=== PATIENT | male | born 1975 | race African-American/Black ===

== ENCOUNTER 2019-04-14 15:41 | Inpatient (IN) | payer OTHER ==
[2019-04-14 17:23] VITALS: BMI 31.2
--- NOTE | 2019-04-14 19:21 | HP ---
CIWA Score Nausea/Vomitin-No Nausea/No Vomiting Muscle Tremors: None Anxiety: 3 Agitation: 4-Moderately Restless Paroxysmal Sweats: 2 Orientation: 0-Oriented Tacttile Disturbances: 2-Mild Itch/Numbness/Burn Auditory Disturbances: 2-Mild Harshness/Frighten Visual Disturbances: 2-Mild Sensitivity Headache: 3-Moderate CIWA-Ar Total Score: 18 - Admission Criteria OASAS Guidelines: Admission for Medically Managed Detox: Requires at least one of the followin. CIWA greater than 12 2. Seizures within the past 24 hours 3. Delirium tremens within the past 24 hours 4. Hallucinations within the past 24 hours 5. Acute intervention needed for co occurring medical disorder 6. Acute intervention needed for co occurring psychiatric disorder 7. Severe withdrawal that cannot be handled at a lower level of care (continued vomiting, continued diarrhea, abnormal vital signs) requiring intravenous medication and/or fluids 8. Admission ROS [facility] Allergies/Adverse Reactions: Allergies Allergy/AdvReac Type Severity Reaction Status Date / Time ibuprofen [From Motrin] Allergy Severe Rash Verified 04/14/19 17:11 amoxicillin Allergy Intermediate Verified 04/14/19 17:11 History of Present Illness: pt here requesting assistance with alcohol, cocaine and cannabis use , reports was referred by executive secretary social welfare at [facility] ER where he went because he was hearing voices telling him he is worthless , currently states has not heard voices in hours, rpeorts auditory hallucinations since teens , dx w / sad not on meds since January 2019 @ [facility]'s claimswas given Seroquel bid . etoh use : 6-pk and 1/2 pint liquor , starts drinking upon awakening , reports irritability if not drinking , tremors , first age of use 19 , heavily isnce 20's , prior detox x " over a dozen " most recently Jun 2018 elev8 , relapsed after d/c . latest use 7 am today , current symptoms as above . cocaine : 100 $ /day denies IVDU cannabis : 20 $/day denies other illicits including opiates . tobacco : 1 ppd pmhx : cough dx w/ COPD , reports was given ALbuterol and meds @ [facility] , completed meds . pshx : jaw frx 1994 , umbil hernia 2009 psych : suicide attempt x 4 , most recently 5 years ago w / cutting wrists , denies current SI / HI SHX : homeless , unemployed on parole x 5 years 2 children ages 18 & 12 , has not met 12 yr old Exam Limitations: Clinical Condition - Ebola screening Have you traveled outside of the country in the last 21 days: No Have you had contact with anyone from an Ebola affected area: No - Review of Systems Constitutional: Loss of Appetite EENT: reports: Other (glasses for reading) Respiratory: reports: Shortness of Breath, Productive cough (improved from prior symptoms states meds helped) Cardiac: reports: No Symptoms Reported GI: reports: Diarrhea : reports: No Symptoms Reported Musculoskeletal: reports: Joint Pain (r ankle x 1 mo , states had xr @ [facility] no frx) Integumentary: reports: No Symptoms Reported Neuro: reports: See HPI, Headache, Tremors Endocrine: reports: No Symptoms Reported Psychiatric: reports: Orientated x3, Agitated, Anxious Patient History - Smoking Cessation Smoking history: Current every day smoker Have you smoked in the past 12 months: Yes Hx Chewing Tobacco Use: No Initiated information on smoking cessation: No - Substances abused Alcohol Substance route: Oral Frequency: Daily Amount used: 25 dollars Age of first use: 19 Date of last use: 04/14/19 Cocaine Substance route: Smoking Frequency: Daily Amount used: 150 dollars Age of first use: 31 Date of last use: 04/13/19 Family Disease History - Family Disease History Family Disease History: Diabetes: Grandparent (paternal ), Father (cva ), Other : Father, Mother (A & W ), Daughter (A & W ) Admission Physical Exam S - Vital Signs Vital Signs: Vital Signs - 24 hr 04/14/19 17:17 Temperature 98.1 F Pulse Rate 71 Respiratory 20 Rate - Physical General Appearance: Yes: Mild Distress, Anxious HEENTM: Yes: Normocephalic, Normal Voice Respiratory: Yes: Lungs Clear, Normal Breath Sounds, No Respiratory Distress, No Accessory Muscle Use Neck: Yes: No masses,lesions,Nodules, Trachea in good position Cardiology: Yes: Regular Rhythm, Regular Rate, S1, S2 Abdominal: Yes: Non Tender, Soft, Protuberent Back: Yes: Normal Inspection Musculoskeletal: Yes: full range of Motion, Gait Steady Extremities: Yes: Normal Range of Motion, Non-Tender Neurological: Yes: Alert, Motor Strength 5/5 Integumentary: Yes: Warm - Diagnostic (1) Alcohol abuse Current Visit: Yes Status: Acute (2) Cannabis abuse Current Visit: Yes Status: Chronic (3) Nicotine dependence Current Visit: Yes Status: Chronic Qualifiers: Nicotine product type: cigarettes Urine Drug Screen - Test Device Lot number: [id number] Expiration date: 12/11/20 - Control Is test valid?: Yes - Results Urine drug screen results: THC-Marijuana, MOP-Opiates Inpatient Rehab Admission - Rehab Decision to Admit Inpatient rehab admission?: No
[2019-04-14] MEDS ORDERED: MELATONIN 5 MG TABLETS PO PRN (19:31)
[2019-04-14] MEDS ORDERED: NICOTINE POLACRILEX 2 MG GUM BUC PRN (19:31)
[2019-04-14] MEDS ORDERED: MAG HYDROX/AL HYDROX/SIMETH 30 ML UNIT-DOSE CUP PO PRN (19:31)
[2019-04-14] MEDS ORDERED: MENTHOL/PHENOL 1 EACH UD MM PRN (19:31)
[2019-04-14] MEDS ORDERED: MAGNESIUM CITRATE 300 ML BOTTLE PO PRN (19:31)
[2019-04-14] MEDS ORDERED: hydrOXYzine PAMOATE 25 MG CAPSULE (FP) PO PRN (19:31)
[2019-04-14] MEDS ORDERED: guaiFENesin 200 MG/10 ML 10 ML UNIT-DOSE CUPS PO PRN (19:31)
[2019-04-14] MEDS ORDERED: ACETAMINOPHEN 325 MG TABLET (FP) PO PRN ×2 (19:31)
[2019-04-14] MEDS ORDERED: MAGNESIUM HYDROX 2400MG/30ML ORAL SUSPENSION 30 ML CUP PO PRN (19:31)
[2019-04-14] MEDS ORDERED: ALBUTEROL SO4 0.083% IH SOL 2.5 MG/3 ML VIAL.NEB. NEB PRN (19:33)
[2019-04-14] MEDS ORDERED: diazePAM 5 MG TABLET PO PRN (19:33)
[2019-04-14] MEDS ORDERED: diphenhydrAMINE HCL 25 MG CAPSULE (FP) PO ONE (21:02)
[2019-04-14] MEDS: diphenhydrAMINE HCL 50 MG CAPSULE PO SCH (21:07)
[2019-04-14] MEDS: diazePAM 5 MG TABLET PO SCH (21:07)
[2019-04-14] MEDS: THIAMINE HCL 100 MG TABLET (FP) PO SCH (21:12)
[2019-04-14] MEDS: ALBUTEROL SO4 8 GM HFA INHALER IH SCH (22:45)
[2019-04-15] MEDS: diazePAM 5 MG TABLET PO SCH ×3 (07:03→22:18)
[2019-04-15] MEDS: ALBUTEROL SO4 8 GM HFA INHALER IH SCH ×5 (07:09→22:21)
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
[2019-04-15] MEDS ORDERED: ONDANSETRON *ODT* 4 MG TABLET SL PRN (09:46)
[2019-04-15 10:07] LABS: HEMATOCRIT 40.4 % (35.4-49); HEMOGLOBIN 13.1 GM/dL (11.7-16.9); MCH 29.6 pg (25.7-33.7); MCHC 32.4 g/dl (32.0-35.9); MEAN CELL VOLUME 91.4 fl (80-96); MEAN PLT VOLUME 7.6 fl (7.5-11.1); PLATELET COUNT 300 K/MM3 (134-434); RBC 4.42 M/mm3 (4.00-5.60); RDW 13.8 % (11.9-15.9); WHITE BLOOD COUNT 5.4 K/mm3 (4.0-10.0)
[2019-04-15] MEDS: PRENATAL VITAMINS W/ FOLIC ACID TABLET (FP) PO SCH (10:27)
[2019-04-15 10:31] LABS: ALBUMIN 3.1 g/dl (3.4-5.0); BILIRUBIN,TOTAL 0.5 mg/dL (0.2-1); BLOOD UREA NITROGEN 10.8 mg/dL (7-18); CALCIUM 8.5 mg/dL (8.5-10.1); CREATININE 1.4 mg/dL (0.55-1.3); TOT PROT 6.2 g/dl (6.4-8.2)
--- NOTE | 2019-04-15 13:18 | PN ---
S CIWA - CIWA Score Nausea/Vomitin Muscle Tremors: 3 Anxiety: 4-Mod. Anxious/Guarded Agitation: 3 Paroxysmal Sweats: 1-Minimal Palms Moist Orientation: 0-Oriented Tacttile Disturbances: 0-None Auditory Disturbances: 0-None Visual Disturbances: 0-None Headache: 0-None Present CIWA-Ar Total Score: 16 BHS Progress Note (SOAP) Subjective: C/O NAUSEA/VOMITING, ANXIETY,FATIGUE, INTERMITTENT SLEEP. Objective: 04/15/19 13:17 Vital Signs - 24 hr 04/14/19 04/14/19 04/15/19 17:17 21:43 00:30 Temperature 98.1 F 97.9 F Pulse Rate 71 80 Respiratory 20 18 18 Rate Blood Pressure 118/53 L 04/15/19 04/15/19 04/15/19 03:30 07:59 09:27 Temperature 97.7 F 97.0 F L Pulse Rate 53 L 56 L Respiratory 18 18 18 Rate Blood Pressure 130/70 132/71 04/15/19 13:10 Temperature 96.8 F L Pulse Rate 62 Respiratory 18 Rate Blood Pressure 111/59 L Laboratory Tests 04/15/19 04/15/19 04/15/19 07:50 07:50 07:50 WBC 5.4 RBC 4.42 Hgb 13.1 Hct 40.4 MCV 91.4 MCH 29.6 MCHC 32.4 RDW 13.8 Plt Count 300 MPV 7.6 Sodium 142 Potassium 4.0 Chloride 108 H Carbon Dioxide 29 Anion Gap 4 L BUN 10.8 Creatinine 1.4 H Est GFR (CKD-EPI)AfAm 71.82 Est GFR (CKD-EPI)NonAf 61.96 Random Glucose 103 Calcium 8.5 Total Bilirubin 0.5 AST 29 ALT 32 Alkaline Phosphatase 61 Total Protein 6.2 L Albumin 3.1 L RPR Titer Nonreactive Assessment: 04/15/19 13:18 WITHDRAWAL SX Plan: CONTINUE DETOX ZOFRAN SL DIRECTED.
[2019-04-15] MEDS ORDERED: diphenhydrAMINE HCL 25 MG CAPSULE (FP) PO ONE (22:02)
[2019-04-15] MEDS: diphenhydrAMINE HCL 50 MG CAPSULE PO SCH (22:18)
[2019-04-15] MEDS: THIAMINE HCL 100 MG TABLET (FP) PO SCH (22:18)
[2019-04-16] MEDS: ALBUTEROL SO4 8 GM HFA INHALER IH SCH ×5 (07:15→22:50)
[2019-04-16] MEDS: diazePAM 5 MG TABLET PO SCH ×2 (07:15→18:35)
--- NOTE | 2019-04-16 10:05 | PN ---
[facility] CIWA - CIWA Score Nausea/Vomitin Muscle Tremors: 2 Anxiety: 2 Agitation: 2 Paroxysmal Sweats: No Perspiration Orientation: 0-Oriented Tacttile Disturbances: 1-Very Mild Itch/Numbness Auditory Disturbances: 1-Very Mild Visual Disturbances: 0-None Headache: 2-Mild CIWA-Ar Total Score: 12 BHS Progress Note (SOAP) Subjective: alert,irritable,anxious,interrupted sleep,tremor Objective: 04/16/19 10:04 Vital Signs Temperature 97.6 F 04/16/19 09:16 Pulse Rate 79 04/16/19 09:16 Respiratory Rate 18 04/16/19 09:16 Blood Pressure 148/89 04/16/19 09:16 O2 Sat by Pulse Oximetry (%) Assessment: 04/16/19 10:05 withdrawal symptom Plan: continue detox
[2019-04-16] MEDS: PRENATAL VITAMINS W/ FOLIC ACID TABLET (FP) PO SCH (10:43)
[2019-04-16] MEDS ORDERED: diphenhydrAMINE HCL 25 MG CAPSULE (FP) PO ONE (21:55)
[2019-04-16] MEDS: THIAMINE HCL 100 MG TABLET (FP) PO SCH (22:50)
[2019-04-16] MEDS: diphenhydrAMINE HCL 50 MG CAPSULE PO SCH (22:50)
[2019-04-17] MEDS: ALBUTEROL SO4 8 GM HFA INHALER IH SCH ×2 (05:30→11:11)
[2019-04-17] MEDS ORDERED: diazePAM 5 MG TABLET PO ONE (06:00)
--- NOTE | 2019-04-17 10:33 | PN ---
S CIWA - CIWA Score Nausea/Vomitin-No Nausea/No Vomiting Muscle Tremors: 1-None Visible, but [place] Anxiety: 1-Mildly Anxious Agitation: 1-Slight > Activity Paroxysmal Sweats: No Perspiration Orientation: 0-Oriented Tacttile Disturbances: 0-None Auditory Disturbances: 0-None Visual Disturbances: 0-None Headache: 1-Very Mild CIWA-Ar Total Score: 4 BHS Progress Note (SOAP) Subjective: alert,no complaint Objective: 04/17/19 10:32 Vital Signs Temperature 97.7 F 04/17/19 06:28 Pulse Rate 59 L 04/17/19 06:28 Respiratory Rate 18 04/17/19 06:28 Blood Pressure 114/62 04/17/19 06:28 O2 Sat by Pulse Oximetry (%) Assessment: 04/17/19 10:32 detox completed,no withdrawal symptom Plan: patient is stable to go to rehab today
--- NOTE | 2019-04-17 10:38 | DS ---
[facility] Detox Discharge Summary Admission Date: 04/14/19 Discharge Date: 04/17/19 - History Present History: Alcohol Dependence, Cannabis Dependence Additional Comments: follow up with [facility] Pertinent Past History: nicotine dependence asthma - Physical Exam Results Vital Signs: Vital Signs Temperature 97.7 F 04/17/19 06:28 Pulse Rate 59 L 04/17/19 06:28 Respiratory Rate 18 04/17/19 06:28 Blood Pressure 114/62 04/17/19 06:28 O2 Sat by Pulse Oximetry (%) Pertinent Admission Physical Exam Findings: withdrawal signs and symptom Laboratory Last Values WBC 5.4 K/mm3 (4.0-10.0) 04/15/19 07:50 RBC 4.42 M/mm3 (4.00-5.60) 04/15/19 07:50 Hgb 13.1 GM/dL (11.7-16.9) 04/15/19 07:50 Hct 40.4 % (35.4-49) 04/15/19 07:50 MCV 91.4 fl (80-96) 04/15/19 07:50 MCH 29.6 pg (25.7-33.7) 04/15/19 07:50 MCHC 32.4 g/dl (32.0-35.9) 04/15/19 07:50 RDW 13.8 % (11.9-15.9) 04/15/19 07:50 Plt Count 300 K/MM3 (134-434) 04/15/19 07:50 MPV 7.6 fl (7.5-11.1) 04/15/19 07:50 Sodium 142 mmol/L (136-145) 04/15/19 07:50 Potassium 4.0 mmol/L (3.5-5.1) 04/15/19 07:50 Chloride 108 mmol/L (98-107) H 04/15/19 07:50 Carbon Dioxide 29 mmol/L (21-32) 04/15/19 07:50 Anion Gap 4 MMOL/L (8-16) L 04/15/19 07:50 BUN 10.8 mg/dL (7-18) 04/15/19 07:50 Creatinine 1.4 mg/dL (0.55-1.3) H 04/15/19 07:50 Est GFR (CKD-EPI)AfAm 71.82 04/15/19 07:50 Est GFR (CKD-EPI)NonAf 61.96 04/15/19 07:50 Random Glucose 103 mg/dL (74-106) 04/15/19 07:50 Calcium 8.5 mg/dL (8.5-10.1) 04/15/19 07:50 Total Bilirubin 0.5 mg/dL (0.2-1) 04/15/19 07:50 AST 29 U/L (15-37) 04/15/19 07:50 ALT 32 U/L (13-61) 04/15/19 07:50 Alkaline Phosphatase 61 U/L (45-117) 04/15/19 07:50 Total Protein 6.2 g/dl (6.4-8.2) L 04/15/19 07:50 Albumin 3.1 g/dl (3.4-5.0) L 04/15/19 07:50 RPR Titer Nonreactive (NONREACTIVE) 04/15/19 07:50 Vital Signs Temperature 97.7 F 04/17/19 06:28 Pulse Rate 59 L 04/17/19 06:28 Respiratory Rate 18 04/17/19 06:28 Blood Pressure 114/62 04/17/19 06:28 O2 Sat by Pulse Oximetry (%) - Treatment Hospital Course: Detox Protocol Followed, Detoxed Safely, Responded well, Discharged Condition Good, Rehab Referral Accepted Patient has Accepted a Rehab Referral to: [facility] - Medication Discharge Medications: Ambulatory Orders Albuterol Sulfate Inhaler - 2 inhaler PO Q4HWA 04/14/19 Diphenhydramine [Benadryl -] 50 mg PO HS 04/14/19 Prednisolone 20 mg PO DAILY 04/14/19 Quetiapine Fumarate [Seroquel] 200 mg PO BID 04/14/19 - Diagnosis (1) Alcohol dependence with withdrawal, uncomplicated Current Visit: Yes Status: Acute (2) Cannabis abuse Current Visit: Yes Status: Chronic (3) Nicotine dependence Current Visit: Yes Status: Chronic Qualifiers: Nicotine product type: cigarettes (4) Asthma Current Visit: Yes Status: Acute - AMA Did Patient Leave Against Medical Advice: No
[2019-04-17] MEDS: PRENATAL VITAMINS W/ FOLIC ACID TABLET (FP) PO SCH (11:10)
[2019-04-17 11:27] VITALS: BP 121/71; PULSE 70; TEMP 97.5
== END 2019-04-17 12:35 | disposition other institution (70) | DRG 774 ==
LOC: YASAS 15:41 → Y6N 20:13
PROVIDERS: ADMIT Surgery; ATTEND Surgery
PROC: HZ2ZZZZ Detoxification Services for Substance Abuse Treatment (ICD-10-PCS; principal; 2019-04-14)
DX: F10.230 Alcohol dependence with withdrawal, uncomplicated (principal); F14.20 Cocaine dependence, uncomplicated; F12.20 Cannabis dependence, uncomplicated; F17.210 Nicotine dependence, cigarettes, uncomplicated; F25.9 Schizoaffective disorder, unspecified; F19.282 Other psychoactive substance dependence with psychoactive substance-induced sleep disorder; F19.24 Other psychoactive substance dependence with psychoactive substance-induced mood disorder; J44.9 Chronic obstructive pulmonary disease, unspecified; Z88.8 Allergy status to other drugs, medicaments and biological substances
CPT/HCPCS: 36415; 80053; 85027; 86593

== ENCOUNTER 2019-04-17 12:47 | Inpatient (IN) | payer OTHER ==
[2019-04-17] MEDS ORDERED: ACETAMINOPHEN 325 MG TABLET (FP) PO PRN (15:02)
[2019-04-17] MEDS ORDERED: MAGNESIUM HYDROX 2400MG/30ML ORAL SUSPENSION 30 ML CUP PO PRN (15:02)
[2019-04-17] MEDS ORDERED: LOPERAMIDE HCL 2 MG CAPSULE PO PRN (15:02)
[2019-04-17] MEDS ORDERED: MAG HYDROX/AL HYDROX/SIMETH 30 ML UNIT-DOSE CUP PO PRN (15:02)
[2019-04-17] MEDS ORDERED: hydrOXYzine PAMOATE 50 MG CAPSULE (FP) PO PRN (15:02)
[2019-04-17] MEDS ORDERED: MENTHOL/PHENOL 1 EACH UD MM PRN (15:02)
[2019-04-17] MEDS ORDERED: P-EPHED 60MG/TRIPROLIDI 2.5MG TABLET PO PRN (15:02)
[2019-04-17] MEDS ORDERED: MAGNESIUM CITRATE 300 ML BOTTLE PO PRN (15:02)
[2019-04-17] MEDS ORDERED: guaiFENesin 200 MG/10 ML 10 ML UNIT-DOSE CUPS PO PRN (15:02)
--- NOTE | 2019-04-17 15:02 | HP ---
[facility] Rehab Assess/Revision - Admission History Admitted to Rehab from: [facility] Date of Admission to Rehab: 04/17/19 - Vital signs Vital Signs: Vital Signs Period Temp Pulse Resp BP Sys/Sandoval Pulse Ox Last 24 Hr 97.8 F 76 18 128/67 - Findings Detox History & Physical reviewed: Yes Concur with findings: Yes Comments/Additional Findings: for rehab as protocol Inpatient Rehab Admission - Rehab Decision to Admit Inpatient rehab admission?: Yes - Initial Determination Are CD services needed?: Yes Free of communicable disease: Yes Not in need of hospitalization: Yes - Rehab Admission Criteria Previous failed treatment: Yes Poor recovery environment: Yes Comorbidities: Yes Lacks judgement: No Patient is meeting Inpatient Rehab admission criteria:: Yes
[2019-04-17] MEDS ORDERED: ALBUTEROL SO4 8 GM HFA INHALER IH PRN (15:04)
[2019-04-17] MEDS: THIAMINE HCL 100 MG TABLET (FP) PO SCH (21:20)
[2019-04-17] MEDS: QUEtiapine FUMARATE 200 MG TABLET PO SCH (21:20)
[2019-04-17] MEDS ORDERED: MELATONIN 5 MG TABLETS PO PRN (22:00)
[2019-04-18] MEDS: PRENATAL VITAMINS W/ FOLIC ACID TABLET (FP) PO SCH (09:45)
[2019-04-18] MEDS: THIAMINE HCL 100 MG TABLET (FP) PO SCH (22:08)
[2019-04-18] MEDS: QUEtiapine FUMARATE 200 MG TABLET PO SCH (22:08)
[2019-04-19] MEDS: PRENATAL VITAMINS W/ FOLIC ACID TABLET (FP) PO SCH (09:51)
[2019-04-19] MEDS: THIAMINE HCL 100 MG TABLET (FP) PO SCH (21:41)
[2019-04-19] MEDS: QUEtiapine FUMARATE 200 MG TABLET PO SCH (21:41)
[2019-04-20] MEDS: PRENATAL VITAMINS W/ FOLIC ACID TABLET (FP) PO SCH (10:27)
[2019-04-20] MEDS: QUEtiapine FUMARATE 200 MG TABLET PO SCH (21:20)
[2019-04-20] MEDS: THIAMINE HCL 100 MG TABLET (FP) PO SCH (21:20)
[2019-04-21] MEDS: PRENATAL VITAMINS W/ FOLIC ACID TABLET (FP) PO SCH (10:45)
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
[2019-04-21] MEDS: QUEtiapine FUMARATE 200 MG TABLET PO SCH ×2 (12:31→21:03)
[2019-04-21] MEDS: THIAMINE HCL 100 MG TABLET (FP) PO SCH (21:03)
[2019-04-22] MEDS: PRENATAL VITAMINS W/ FOLIC ACID TABLET (FP) PO SCH (10:13)
[2019-04-22] MEDS: QUEtiapine FUMARATE 200 MG TABLET PO SCH ×2 (10:13→22:12)
[2019-04-22] MEDS: THIAMINE HCL 100 MG TABLET (FP) PO SCH (22:12)
[2019-04-23] MEDS: PRENATAL VITAMINS W/ FOLIC ACID TABLET (FP) PO SCH (10:14)
[2019-04-23] MEDS: QUEtiapine FUMARATE 200 MG TABLET PO SCH ×2 (10:14→21:11)
[2019-04-23] MEDS: THIAMINE HCL 100 MG TABLET (FP) PO SCH (21:11)
[2019-04-24] MEDS: PRENATAL VITAMINS W/ FOLIC ACID TABLET (FP) PO SCH (10:10)
[2019-04-24] MEDS: QUEtiapine FUMARATE 200 MG TABLET PO SCH ×2 (10:10→22:07)
[2019-04-24] MEDS: THIAMINE HCL 100 MG TABLET (FP) PO SCH (22:07)
[2019-04-25] MEDS: PRENATAL VITAMINS W/ FOLIC ACID TABLET (FP) PO SCH (10:13)
[2019-04-25] MEDS: QUEtiapine FUMARATE 200 MG TABLET PO SCH ×2 (10:13→21:10)
[2019-04-25] MEDS: THIAMINE HCL 100 MG TABLET (FP) PO SCH (21:10)
[2019-04-26] MEDS: QUEtiapine FUMARATE 200 MG TABLET PO SCH ×2 (10:23→22:30)
[2019-04-26] MEDS: PRENATAL VITAMINS W/ FOLIC ACID TABLET (FP) PO SCH (10:23)
[2019-04-26] MEDS: THIAMINE HCL 100 MG TABLET (FP) PO SCH (22:30)
[2019-04-27] MEDS: QUEtiapine FUMARATE 200 MG TABLET PO SCH ×2 (10:11→21:25)
[2019-04-27] MEDS: PRENATAL VITAMINS W/ FOLIC ACID TABLET (FP) PO SCH (10:11)
[2019-04-27] MEDS: THIAMINE HCL 100 MG TABLET (FP) PO SCH (21:25)
[2019-04-28] MEDS: PRENATAL VITAMINS W/ FOLIC ACID TABLET (FP) PO SCH (09:54)
[2019-04-28] MEDS: QUEtiapine FUMARATE 200 MG TABLET PO SCH ×2 (09:54→21:30)
[2019-04-28] MEDS: THIAMINE HCL 100 MG TABLET (FP) PO SCH (21:30)
[2019-04-29] MEDS: QUEtiapine FUMARATE 200 MG TABLET PO SCH ×2 (10:07→21:26)
[2019-04-29] MEDS: PRENATAL VITAMINS W/ FOLIC ACID TABLET (FP) PO SCH (10:07)
[2019-04-29] MEDS: THIAMINE HCL 100 MG TABLET (FP) PO SCH (21:26)
[2019-04-30] MEDS: QUEtiapine FUMARATE 200 MG TABLET PO SCH ×2 (11:00→21:35)
[2019-04-30] MEDS: PRENATAL VITAMINS W/ FOLIC ACID TABLET (FP) PO SCH (11:00)
[2019-04-30] MEDS: THIAMINE HCL 100 MG TABLET (FP) PO SCH (21:35)
[2019-05-01] MEDS: QUEtiapine FUMARATE 200 MG TABLET PO SCH ×2 (10:09→22:30)
[2019-05-01] MEDS: PRENATAL VITAMINS W/ FOLIC ACID TABLET (FP) PO SCH (10:09)
[2019-05-01 22:26] VITALS: BP 146/83; PULSE 80; TEMP 97.8
--- NOTE | 2019-05-01 22:29 | DS ---
[facility] Detox Discharge Summary Admission Date: 04/17/19 Discharge Date: 05/01/19 - History Additional Comments: Patient is leaving against medical advice. He reports that his daughter is taking him out tomorrow to [employer] and that he feels a lot better. Risks and importance of completing Rehab. reinforced. Patient verbalized understanding of instructions. He is alert and oriented to person, place and time, in no distress and medically stable at this time. Pertinent Past History: Withdrawal symptoms - Physical Exam Results Vital Signs: Vital Signs Temperature 97.7 F 05/01/19 10:36 Pulse Rate 18 L 05/01/19 10:36 Respiratory Rate 65 H 05/01/19 10:36 Blood Pressure 112/62 05/01/19 10:36 O2 Sat by Pulse Oximetry (%) Pertinent Admission Physical Exam Findings: COPD, Cannabis dependence, Alcohol dependence, schizophrenia, cocaine dependence , nicotine dependence - Medication Discharge Medications: Ambulatory Orders Albuterol Sulfate Inhaler - [Ventolin Hfa Inhaler -] 2 inh PO Q4H PRN 04/14/19 Diphenhydramine [Benadryl -] 50 mg PO HS PRN 04/14/19 Prednisone 20 mg PO DAILY 04/14/19 Quetiapine Fumarate [Seroquel] 200 mg PO BID 04/14/19 - Diagnosis (1) Cocaine dependence Status: Acute (2) Nicotine dependence Status: Chronic (3) Alcohol dependence with withdrawal, uncomplicated Status: Chronic (4) Substance induced mood disorder Status: Acute (5) Substance-induced sleep disorder Status: Acute (6) COPD (chronic obstructive pulmonary disease) Status: Chronic (7) Cannabis abuse Status: Chronic (8) Schizoaffective disorder Status: Chronic - AMA Did Patient Leave Against Medical Advice: Yes
[2019-05-01] MEDS: THIAMINE HCL 100 MG TABLET (FP) PO SCH (22:30)
== END 2019-05-01 22:25 | disposition left against medical advice (07) | DRG 770 ==
LOC: YASAS 12:47 → Y5N 12:51
PROVIDERS: ADMIT Neuromusculoskeletal Medicine & OMM; ATTEND Neuromusculoskeletal Medicine & OMM
PROC: HZ42ZZZ Group Counseling for Substance Abuse Treatment, Cognitive-Behavioral (ICD-10-PCS; principal; 2019-04-17)
DX: F10.20 Alcohol dependence, uncomplicated (principal); F14.20 Cocaine dependence, uncomplicated; F12.10 Cannabis abuse, uncomplicated; F17.210 Nicotine dependence, cigarettes, uncomplicated; F19.24 Other psychoactive substance dependence with psychoactive substance-induced mood disorder; F19.282 Other psychoactive substance dependence with psychoactive substance-induced sleep disorder; F25.9 Schizoaffective disorder, unspecified; J44.9 Chronic obstructive pulmonary disease, unspecified; Z88.1 Allergy status to other antibiotic agents; Z88.6 Allergy status to analgesic agent